=== PATIENT | female | born 1980 | race Caucasian/White ===

== ENCOUNTER 2019-12-13 08:02 | Emergency (ER) | payer SELFPAY ==
[2019-12-13 08:32] VITALS: BP 115/69; PULSE 62; RESP 20; TEMP 36.9; O2SAT 100
--- NOTE | 2019-12-13 08:49 | ED.GENADULT ---
HPI - General Adult General Chief complaint: Eye Problems Stated complaint: Left eye pain/watery Time Seen by Provider: 12/13/19 08:51 Source: patient and RN notes reviewed Mode of arrival: ambulatory Limitations: no limitations History of Present Illness HPI narrative: 39-year-old female presents with concern for left eye drainage, irritation. Reports that started 2 days ago and has been getting worse. She denies any injury, contact lens wearing, foreign body. Reports pain is a 2 out of 10 in the left eye. MD complaint: Eye pain Related Data Home Medications Medication Instructions Recorded Confirmed sertraline [Zoloft] 50 mg PO DAILY 12/13/19 12/13/19 Allergies Allergy/AdvReac Type Severity Reaction Status Date / Time metoclopramide Allergy Intermediate Seizure Verified 12/13/19 08:40 adhesive Allergy Unknown RASH Verified 12/13/19 08:40 aripiprazole Allergy Unknown Unknown Verified 12/13/19 08:40 codeine Allergy Unknown Unknown Verified 12/13/19 08:40 dicyclomine Allergy Unknown Unknown Verified 12/13/19 08:40 iodine Allergy Unknown Dyspnea / Verified 12/13/19 08:40 SOB meperidine Allergy Unknown Unknown Verified 12/13/19 08:40 Penicillins Allergy Unknown Swelling Verified 12/13/19 08:40 Review of Systems Review of Systems: Narrative: CONSTITUTIONAL: Denies malaise, chills, sweats, or fever. EYES: Denies visual changes, redness. Reports left eye cloudy copious discharge. ENT: Denies rhinorrhea, congestion, sinus pain, otalgia or sore throat. SKIN: Denies rash or itching. NEUROLOGIC: Denies headache. All systems reviewed & are unremarkable except as noted in HPI and below PMFSH Past Medical History Medical History (Updated 12/13/19 @ 08:59 by Luda Pain[employer] NP) Colon polyp Gastroparesis Nausea and vomiting in adult Family History Family History (Updated 05/02/19 @ 15:21 by DOCTOR UNKNOWN) Mother Family history of malignant neoplasm of kidney Father Patient's father is Sibling Family history of gynecological problem Grandparent Family history of chronic obstructive pulmonary disease Social History Social History Smoking status: Never smoker Second hand tobacco smoke exposure: No Alcohol intake: current Comments At time of signature, agree with nursing past medical, surgical, social and family history. There is no relevant family history pertinent to the presenting complaint Exam Narrative: Exam Narrative: GENERAL: Well-appearing, well-nourished, and in no acute distress. HEAD: Normocephalic, atraumatic. EYES: Right eye PERRLA, conjunctivae clear, and EOMI. No nystagmus. Left eye PERRLA, conjunctivae clear, and EOMI, sclerae injected, purulent drainage noted, mild upper lid superficial edema ENT: Nares clear, turbinates pink, no rhinorrhea or epistaxis. Mucous membranes moist. Oropharynx without erythema or lesions. NECK: Supple. No lymphadenopathy. CHEST: No respiratory distress. Speaks in full sentences. HEART: Regular rate and rhythm SKIN: Warm, dry, no rash. NEURO: Alert and oriented x3. PSYCH: Normal mood and affect Course Course Emergency Course: Patient is aware of diagnosis, understands and agrees to treatment plan. Anticipatory guidance given. Patient agrees to follow-up as directed and is aware of reasons to seek care at the emergency department. Portions of this record may have been created with voice recognition software Vital Signs Vital signs: Vital Signs Temperature 98.4 F 12/13/19 08:32 Pulse Rate 62 12/13/19 08:32 Respiratory Rate 20 12/13/19 08:32 Blood Pressure 115/69 12/13/19 08:32 Pulse Oximetry 100 12/13/19 08:32 Temperature 98.4 F 12/13/19 08:32 Pulse Rate 62 12/13/19 08:32 Respiratory Rate 20 12/13/19 08:32 Blood Pressure 115/69 12/13/19 08:32 Pulse Oximetry 100 12/13/19 08:32 Reviewed. Medical Decision Making MDM Narrative Medical decision making narrative: Consideration of
== END 2019-12-13 08:55 | disposition home or self-care (01) ==
PROVIDERS: Emergency Provider Nurse Practitioner; PCP Internal Medicine
DX: H10.32 Unspecified acute conjunctivitis, left eye (principal); K31.84 Gastroparesis
CPT/HCPCS: 99213; G0463

== ENCOUNTER 2021-06-11 14:53 | Emergency (ER) | payer OTHER, SELFPAY ==
--- NOTE | ~2021-06-11 | CT_ITS ---
EXAMINATION: CT brain wo con DATE: 06/11/2021 17:41 INDICATION: Dizziness TECHNIQUE: Computed tomography (CT) of the head was performed without intravenous contrast. The mA wa s adjusted according to patient size. Iterative reconstruction technique was employed. Exam dose: 52 9.67 mGy-cm total exam DLP. COMPARISON: None FINDINGS: No intracranial mass lesion or hemorrhage or cerebrovascular accident. Normal ventricular s ize. Normal payan-white matter differentiation. No midline shift or mass effect. No subdural or epidur al hematoma. No fracture or bone destruction of the cranial vault. Mastoid air cells and included paranasal sinuse s are normally developed and aerated. IMPRESSION: Normal examination Reviewed, dictated and finalized at [facility]. Reviewed, dictated and finalized at [facility]. IMPRESSION: Normal examination
--- NOTE | ~2021-06-11 | XR_ITS ---
XR chest 1V portable DATE: 06/11/2021 16:33 INDICATION: Shortness of breath. Covid-positive in January 2021 TECHNIQUE: Portable upright AP chest on 06/04/2021 at 1628 hours COMPARISON: 10/29/2018 PA and lateral chest FINDINGS: The normal heart size. No hilar or mediastinal enlargement. No pulmonary infiltrate or cons olidation, pleural effusion or pulmonary vascular congestion or pneumothorax. Included skeletal structures are unremarkable. Status post cholecystectomy. IMPRESSION: No active cardiopulmonary disease Reviewed, dictated and finalized at [facility].
[2021-06-11 14:55] VITALS: BP 127/82; PULSE 60; RESP 18; TEMP 36.6; O2SAT 100
[2021-06-11 15:07] VITALS: PULSE 57
--- NOTE | 2021-06-11 15:59 | ECG_ITS ---
Measurements Intervals Central Rate: 56 P: 71 WV: 151 QRS: 19 QRSD: 96 T: 38 QT: 448 QTc: 432 Interpretive Statements SINUS BRADYCARDIA DELAYED PRECORDIAL R/S TRANSITION BORDERLINE T WAVE ABNORMALITY- ANT/INF LEADS BASELINE ARTIFACT- I, II, III, AVR, AVL, AVF, V2-V6 BORDERLINE ECG Electronically Signed On 06-11-2021 17:44:03 CDT by Rafita Greer D.O.
[2021-06-11 16:26] LABS: Alveolar/Arterial O2 Gradient 16.3 mmHg; Base Excess ABG -4.2 mEq/l (+/-2.0); Device ROOM AIR; Fractional Inspired Oxygen 21 %; HCO3 ABG 18.2 mEq/l (22.0-26.0); Modified Allen's Test Pass; Oxygen Content ABG 19.7 %vol (16.0-22.0); Oxygen Saturation ABG 97.9 % (95.0-100.0); PCO2 ABG 27.1 mmHg (35.0-45.0); PO2 FiO2 Ratio Arterial Blood 4.81 %; Site Drawn RIGHT RADIAL; Total Hemoglobin 14.4 g/dL (12.0-18.0); pH ABG 7.446 (7.350-7.450)
[2021-06-11 17:18] LABS: Basophils Percent Auto 0.5 % (0.2-1.2); Eosinophils Absolute Auto 0.1 K/mm3 (0-0.3); Eosinophils Percent Auto 1.6 % (0-4.4); Hematocrit 42.4 % (37.0-47.0); Hemoglobin 14.3 g/dL (12.0-15.0); Immature Granulocyte Absolute 0.02 K/mm3 (0.00-0.031); Immature Granulocyte Percent A 0.3 % (0-0.5); Lymphocytes Absolute Auto 3.22 K/mm3 (0.9-3.2); Mean Corpuscular HGB Conc 33.7 g/dl (32-36); Mean Platelet Volume 10.5 fl (7.4-10.4); Monocytes Absolute Auto 0.5 K/mm3 (0.1-0.6); Neutrophils Absolute Auto 3.6 K/mm3 (1.3-6.7); Neutrophils Percent Auto 48.6 % (45.5-73.1); Platelet Count Result 279 k/mm3 (150-375); Red Blood Count 4.93 M/mm3 (4.2-5.4); Red Cell Distribution Width 12.8 % (11.5-14.5); White Blood Count 7.5 K/mm3 (4.5-10.0)
[2021-06-11] MEDS: ONDANSETRON INJ 4 MG/2 ML VIAL 8 MG IV PUSH (17:21)
--- NOTE | 2021-06-11 17:31 | ED.GENADULT ---
HPI - General Adult General Chief complaint: Shortness of Breath/Dyspnea Stated complaint: SOB Time Seen by Provider: 06/11/21 15:58 Source: patient and family Mode of arrival: ambulatory Limitations: no limitations History of Present Illness HPI narrative: Patient is 40 years old white female presented to the ED with intermittent shortness of breath since January 2021 after having Covid infection at that time. Later was diagnosed of pulmonary embolism and started on Xarelto. Patient been out of work since January, went back to work 10 days ago. Today patient felt dizzy with nausea. Patient denies worsening of the shortness of breath. Her shortness of breath is intermittent with exertion. History of COVID-19 infection January 28, 2021. Patient denies any fever, chills, vomiting, chest pain, headache, abdominal pain or back pain. Related Data Home Medications Medication Instructions Recorded Confirmed sertraline [Zoloft] 100 mg PO DAILY 12/13/19 12/13/19 rivaroxaban [Xarelto] mg 06/11/21 topiramate [Topamax] 100 mg PO BID 06/11/21 Allergies Allergy/AdvReac Type Severity Reaction Status Date / Time metoclopramide Allergy Intermediate Seizure Verified 06/11/21 14:58 adhesive Allergy Unknown RASH Verified 06/11/21 14:58 aripiprazole Allergy Unknown Unknown Verified 06/11/21 14:58 codeine Allergy Unknown Unknown Verified 06/11/21 14:58 dicyclomine Allergy Unknown Unknown Verified 06/11/21 14:58 iodine Allergy Unknown Dyspnea / Verified 06/11/21 14:58 SOB meperidine Allergy Unknown Unknown Verified 06/11/21 14:58 Penicillins Allergy Unknown Swelling Verified 06/11/21 14:58 Review of Systems Review of Systems: CONSTITUTIONAL: Denies fever, chills, or sweats. EYES: Denies visual changes, redness, or discharge. ENT: Denies rhinorrhea, congestion, sore throat, or otalgia. CARDIOVASCULAR: Denies chest pain, palpitations, or edema. RESPIRATORY: Denies cough or dyspnea. GASTROINTESTINAL: Denies abdominal pain, nausea, vomiting, or diarrhea. GENITOURINARY: Denies dysuria or hematuria. SKIN: Denies rash or itching. MUSCULOSKELETAL: Denies back pain, joint pain, or myalgia. NEUROLOGIC: Denies headache, numbness, or weakness. PSYCHIATRIC: Denies anxiety or depression. PMFSH Past Medical History Medical History Bloating Colon polyp Gastroparesis Irritable bowel syndrome with diarrhea Nausea and vomiting in adult Family History Family History Mother Family history of malignant neoplasm of kidney Father Patient's father is Sibling Family history of gynecological problem Grandparent Family history of chronic obstructive pulmonary disease Social History Social History Smoking status: Never smoker Second hand tobacco smoke exposure: No Alcohol intake: current Exam Narrative: General appearance: Well-developed, well-nourished Skin: Normal color Head: Normocephalic, nontraumatic Eyes: Clear conjunctiva ENT: Oropharynx normal, ears normal, nose normal Neck: Supple, nontender Chest and respiratory: Airway patent, no respiratory distress, no accessory muscle use Heart: Regular rate/rhythm Abdomen: Soft, nontender, no organomegaly, quiet bowel sounds Vascular: Normal peripheral pulses, normal capillary refill. Musculoskeletal: Normal range of motion, nontender back Neurologic: Alert and oriented ?3, W[employer]INEER is normal as tested, no gross motor deficit Course Course Emergency Course: Stable Vital Signs Vital signs: Vital Signs Temperature 36.6 C 06/11/21 14:55 P
[2021-06-11 17:32] LABS: Alanine Aminotransferase 34 U/L (4-35); Albumin Level 4.6 g/dL (3.5-5.1); Alkaline Phosphatase 97 U/L (38-126); Anion Gap 10 mmol/L (8-16); Aspartate Amino Transferase 29 U/L (14-36); Bilirubin,Total 0.5 mg/dL (0.2-1.3); Blood Urea Nitrogen 6 mg/dL (7-17); Calcium 9.5 mg/dL (8.4-10.2); Carbon Dioxide 23 mmol/L (22-30); Chloride 106 mmol/L (98-107); Estimated CRCL calculation 88 ml/min; Estimated Glomerular Filt Rate > 60; Glucose 105 mg/dL (65-110); Potassium 3.5 mmol/L (3.4-5.0); Sodium 139 mmol/L (137-145)
[2021-06-11 17:33] LABS: Magnesium 1.8 mg/dL (1.6-2.3)
[2021-06-11 17:41] LABS: INR 1.1; Prothrombin Time 13.6 Seconds (11.1-14.7)
[2021-06-11 17:42] LABS: Partial Thromboplastin Time 29.1 SECONDS (22.3-36.8)
[2021-06-11 17:47] LABS: NT Pro B Type Natriuretic Pept 21 pg/mL (5-100); Troponin I < 0.012 ng/mL (0.000-0.034)
[2021-06-11 18:15] VITALS: BP 126/90; PULSE 60; RESP 14; O2SAT 100
== END 2021-06-11 18:16 | disposition home or self-care (01) ==
PROVIDERS: Emergency Provider Emergency Medicine; PCP Internal Medicine
DX: F45.8 Other somatoform disorders (principal); R06.02 Shortness of breath; B94.8 Sequelae of other specified infectious and parasitic diseases; Z86.711 Personal history of pulmonary embolism; K31.84 Gastroparesis; K58.0 Irritable bowel syndrome with diarrhea; Z79.01 Long term (current) use of anticoagulants; Z86.010 Personal history of colon polyps; R00.1 Bradycardia, unspecified; R94.31 Abnormal electrocardiogram [ECG] [EKG]
CPT/HCPCS: 36415; 36600; 70450; 71045; 80053; 82805; 83735; 83880; 84484; 85025; 85610; 85730; 93005; 96374; 99284; J2405

== ENCOUNTER 2023-08-09 11:24 | Outpatient (CLI) | payer OTHER, SELFPAY ==
[2023-08-09 12:25] LABS: Alanine Aminotransferase 38 U/L (6-35); Albumin Level 4.7 g/dL (3.5-5.1); Alkaline Phosphatase 69 U/L (38-126); Anion Gap 10 mmol/L (8-16); Aspartate Amino Transferase 38 U/L (14-36); Bilirubin,Total 0.6 mg/dL (0.2-1.3); Blood Urea Nitrogen 11 mg/dL (7-17); Calcium 9.5 mg/dL (8.4-10.2); Carbon Dioxide 23 mmol/L (22-30); Chloride 102 mmol/L (98-107); Estimated Glomerular Filt Rate > 60; Glucose 146 mg/dL (65-110); Potassium 3.9 mmol/L (3.4-5.0); Sodium 135 mmol/L (137-145)
== END 2023-08-09 11:25 | disposition home or self-care (01) ==
LOC: ANHLAB 11:26
PROVIDERS: PCP Internal Medicine; Visit Provider Nurse Practitioner
DX: K31.84 Gastroparesis (principal); R11.2 Nausea with vomiting, unspecified
CPT/HCPCS: 36415; 80053

== ENCOUNTER 2023-08-22 17:37 | Outpatient (CLI) | payer OTHER, SELFPAY ==
--- NOTE | ~2023-08-22 | XR_ITS ---
Supine and upright views of the abdomen Clinical history: Early satiety Findings: Bowel gas pattern is nonspecific. No evidence for obstruction or free air. No abnormal mass lesion or calcification is seen. Cholecystectomy clips noted. Osseous structures are intact. Impression: No significant abnormality is seen. Reviewed, dictated and finalized at [facility]. [employer] Impression: No significant abnormality is seen.
== END 2023-08-22 17:38 | disposition home or self-care (01) ==
LOC: ANHIMG 17:39
PROVIDERS: PCP Internal Medicine; Visit Provider Nurse Practitioner
DX: R14.0 Abdominal distension (gaseous) (principal); R68.81 Early satiety
CPT/HCPCS: 74018

== ENCOUNTER 2023-10-10 01:07 | Day surgery (SDC) | payer OTHER, MEDICAID, SELFPAY ==
[2023-09-19 14:33] VITALS: BMI 28.6
--- NOTE | 2023-10-06 09:17 | SUR.PREOP ---
Patient called regarding upcoming procedure. Message left on pt's voicemail regarding appointment times.
[2023-10-10 09:05] VITALS: BP 116/74; PULSE 90; RESP 18; TEMP 36.1; O2SAT 98; BMI 31.8
[2023-10-10] MEDS: LACTATED RINGERS 1,000 ML 150 ML IV CONT (09:22)
--- NOTE | 2023-10-10 10:00 | WPDANESEPPF ---
Anes - Initial Pre Proc Eval Procedure: Operation Date: 10/10/23 10:30 Proposed Procedures p Colonoscopy - Bill Castano MD Date/Time: 10/10/23 10:00 Surgeon: Bill Castano MD Pre Op Diagnosis: hx colon polyps Patient Data Age: 43 Gender: F Height: 1.65 m Weight: 86.7 kg Last Vital Signs Temp 97 F L 10/10/23 09:05 Pulse 90 10/10/23 09:05 Resp 18 10/10/23 09:05 BP 116/74 10/10/23 09:05 Pulse Ox 98 10/10/23 09:05 O2 Del Method Room Air 10/10/23 09:05 Allergies Allergy/AdvReac Type Severity Reaction Status Date / Time metoclopramide Allergy Intermediate Seizure Verified 09/26/23 10:39 adhesive Allergy Unknown RASH Verified 09/26/23 10:39 aripiprazole Allergy Unknown Unknown Verified 09/26/23 10:39 codeine Allergy Unknown Unknown Verified 09/26/23 10:39 dicyclomine Allergy Unknown Unknown Verified 09/26/23 10:39 iodine Allergy Unknown Dyspnea / Verified 09/26/23 10:39 SOB meperidine Allergy Unknown Unknown Verified 09/26/23 10:39 Penicillins Allergy Unknown Swelling Verified 09/26/23 10:39 Home Medications Medication Instructions Recorded Confirmed Type sertraline 50 mg tablet (Zoloft) 100 mg PO DAILY 12/13/19 09/26/23 History cholestyramine (with sugar) 4 gram 4 g PO BID #60 ea 08/09/23 09/26/23 Rx powder for susp in a packet (Questran) magnesium hydroxide 400 mg/5 mL 5 ml PO DAILY PRN Constipation 08/09/23 09/26/23 History oral suspension (Dulcolax (magnesium hydroxide)) metoprolol succinate 25 mg 25 mg PO DAILY 08/09/23 09/26/23 History tablet,extended release 24 hr sacrosidase 8,500 unit/mL oral 2 ml PO 6XD #360 mL 09/18/23 09/26/23 Rx solution (Sucraid) Patient hx anesthesia problems: none Family hx anesthesia problems: none Results Review: All pre-operative results and documents have been reviewed as part of the pre-operative evaluation. [facility] Past Medical History Medical History Bloating BMI 32.0-32.9,adult Colon polyp Congenital sucrase-isomaltase deficiency Early satiety Gastroparesis Irritable bowel syndrome with diarrhea Nausea and vomiting in adult Personal history of colonic polyps Family History Family History Mother Family history of malignant neoplasm of kidney Lung cancer Diabetes mellitus Edema Father Patient's father is MVC Sibling Family history of gynecological problem Grandparent Family history of chronic obstructive pulmonary disease Social History Social History Smoking status: Never smoker Second hand tobacco smoke exposure: No Alcohol intake: current Substance use: never Substance use type: does not use Lack of Transportation: No Lack of Food: Never True Current Housing: I Have Housing Concerned About Future Housing: No Difficulty Paying Gas/Electric Bills: No Difficulty Paying for Meds: No Currently Unemployed: No Education: Associate Degree Difficulty w/ Childcare or Family Care: No Living arrangements: with family Occupation/Education: occupation Additional occupation/education comments: [employer] Gender identity (if verbalized by the patient): Female Spiritual care concerns: No Anes - Eval Final PreProcedure Day of Procedure 10/10/23 10:00 Patient weight: normal Heart: regular rate and rhythm Lungs: clear to auscultation Airway: Mallampati scale Neurological: alert and oriented Last oral intake: >/= 8 hours ASA classification: III Emergent: no Anesthetic plan: proceed Anesthesia type and monitoring: general GIVS and standard monitoring Results Review: All pre-operative results and documents have been reviewed as part of the pre-operative evaluation. Informed Consent: The patient's anesthetic plan and its attendant ri
--- NOTE | 2023-10-10 10:02 | WPDHPUPDATE1 ---
History and Physical Update Update Date/Time: 10/10/23 10:02 History and Physical has been reviewed, including an updated exam of the patient. There are NO changes in the patient's condition. Risks, benefits, and alternatives have been discussed and questions answered. Patient agrees to proceed with procedure.
[2023-10-10 10:36] VITALS: BP 103/69; PULSE 52; RESP 18; O2SAT 100
[2023-10-10 10:46] VITALS: BP 105/70; PULSE 51; RESP 20; O2SAT 100
== END 2023-10-10 11:10 | disposition home or self-care (01) ==
PROVIDERS: PCP Internal Medicine; Visit Provider Internal Medicine Gastroenterology
PROC: 0DJD8ZZ Inspection of Lower Intestinal Tract, Via Natural or Artificial Opening Endoscopic (ICD-10-PCS; CPT 45378; principal; 2023-10-10 10:30)
DX: Z12.11 Encounter for screening for malignant neoplasm of colon (principal); D12.0 Benign neoplasm of cecum; D12.2 Benign neoplasm of ascending colon; D12.3 Benign neoplasm of transverse colon; K63.5 Polyp of colon; E74.31 Sucrase-isomaltase deficiency; K58.0 Irritable bowel syndrome with diarrhea
CPT/HCPCS: 45380; 45385; 88305; J2001; J2704; J7120

== ENCOUNTER 2023-10-30 11:06 | Outpatient (CLI) | payer OTHER, MEDICAID, SELFPAY ==
[2023-10-30 19:18] LABS: Basophils Absolute Auto 0.1 K/mm3 (0.0-0.1); Basophils Percent Auto 0.7 % (0.2-1.2); Eosinophils Absolute Auto 0.1 K/mm3 (0-0.3); Eosinophils Percent Auto 1.7 % (0-4.4); Hematocrit 42.9 % (37.0-47.0); Hemoglobin 14.3 g/dL (12.0-15.0); Immature Granulocyte Absolute 0.01 K/mm3 (0.00-0.031); Immature Granulocyte Percent A 0.1 % (0-0.5); Lymphocytes Absolute Auto 2.92 K/mm3 (0.9-3.2); Mean Corpuscular HGB Conc 33.3 g/dl (32-36); Mean Corpuscular Hemoglobin 29.7 pg (26-34); Mean Platelet Volume 11.5 fl (7.4-10.4); Monocytes Absolute Auto 0.6 K/mm3 (0.1-0.6); Neutrophils Absolute Auto 3.8 K/mm3 (1.3-6.7); Neutrophils Percent Auto 50.5 % (45.5-73.1); Platelet Count Result 252 k/mm3 (150-375); Red Blood Count 4.82 M/mm3 (4.2-5.4); Red Cell Distribution Width 12.4 % (11.5-14.5); White Blood Count 7.5 K/mm3 (4.5-10.0)
[2023-10-30 19:27] LABS: Alanine Aminotransferase 42 U/L (6-35); Albumin Level 4.6 g/dL (3.5-5.1); Alkaline Phosphatase 83 U/L (38-126); Anion Gap 10 mmol/L (8-16); Aspartate Amino Transferase 32 U/L (14-36); Bilirubin,Total 0.5 mg/dL (0.2-1.3); Blood Urea Nitrogen 11 mg/dL (7-17); Calcium 9.3 mg/dL (8.4-10.2); Carbon Dioxide 26 mmol/L (22-30); Chloride 101 mmol/L (98-107); Cholesterol 280 mg/dL (0-200); Estimated Glomerular Filt Rate > 60; Glucose 137 mg/dL (65-110); HDL Direct 63 mg/dL; Potassium 4.2 mmol/L (3.4-5.0); Sodium 137 mmol/L (137-145); Triglycerides 154 mg/dL (<150)
[2023-10-30 19:37] LABS: LDL Cholesterol Direct 182 mg/dL
== END 2023-10-30 11:07 | disposition home or self-care (01) ==
LOC: ANHGOSHLAB 11:08
PROVIDERS: PCP Internal Medicine; Visit Provider Nurse Practitioner Family
DX: K31.84 Gastroparesis (principal); Z68.32 Body mass index [BMI] 32.0-32.9, adult; K58.0 Irritable bowel syndrome with diarrhea; E55.9 Vitamin D deficiency, unspecified
CPT/HCPCS: 36415; 80053; 80061; 82306; 84443; 85025

== ENCOUNTER 2024-02-02 11:17 | Outpatient (CLI) | payer OTHER, MEDICAID, SELFPAY ==
--- NOTE | ~2024-02-02 | XR_ITS ---
Left ankle Technique: AP, oblique, and lateral views were obtained. Clinical History: Sprain Findings: No acute fracture or dislocation is seen. Osseous alignment is anatomic. Ankle mortise and other visualized joint spaces are preserved. Soft tissues are otherwise unremarkable. Impression: Unremarkable left ankle. Reviewed, dictated and finalized at location . Impression: Unremarkable left ankle.
== END 2024-02-02 11:18 ==
LOC: MICIMG 11:19
PROVIDERS: PCP Emergency Medicine; Visit Provider Emergency Medicine
DX: S93.402A Sprain of unspecified ligament of left ankle, initial encounter (principal); X58.XXXA Exposure to other specified factors, initial encounter
CPT/HCPCS: 73610

== ENCOUNTER 2024-04-01 15:20 | Outpatient (CLI) | payer OTHER, SELFPAY ==
--- NOTE | ~2024-04-01 | XR_ITS ---
XR ankle LT min 3V Ordering provider: Whit Anderson History: . lateral left ankle pain after twisting injury 3 days ago . Comparison: February 02, 2024 FINDINGS: BONES: No acute fracture or dislocation. Well corticated small bone chip is seen in the area of the m edial malleolus which may indicate old fracture or nonunited apophysis. Unchanged from previous exami nation. JOINT SPACES: The ankle mortise is normal. SOFT TISSUES: Normal. Calcaneal spur. IMPRESSION: No definite acute osseous abnormality left ankle. Well corticated small bone chip is seen in the area of the medial malleolus which may indicate old fr acture or nonunited apophysis. Unchanged from previous examination. Reviewed, dictated and finalized at location [facility]. IMPRESSION: No definite acute osseous abnormality left ankle. Well corticated small bone chip is seen in the area of the medial malleolus whi ch may indicate old fracture or nonunited apophysis. Unchanged from previous ex amination.
== END 2024-04-01 15:21 ==
PROVIDERS: PCP Emergency Medicine; Visit Provider Nurse Practitioner Family
DX: M25.572 Pain in left ankle and joints of left foot (principal); X50.0XXA Overexertion from strenuous movement or load, initial encounter
CPT/HCPCS: 73610

== ENCOUNTER 2024-04-10 09:10 | Outpatient (CLI) | payer OTHER, MEDICAID, SELFPAY ==
[2024-04-10 10:19] LABS: Basophils Percent Auto 0.5 % (0.2-1.2); Eosinophils Absolute Auto 0.1 K/mm3 (0-0.3); Eosinophils Percent Auto 1.5 % (0-4.4); Hematocrit 41.3 % (37.0-47.0); Hemoglobin 14.1 g/dL (12.0-15.0); Immature Granulocyte Absolute 0.02 K/mm3 (0.00-0.031); Immature Granulocyte Percent A 0.3 % (0-0.5); Lymphocytes Absolute Auto 2.87 K/mm3 (0.9-3.2); Lymphocytes Percent Auto 44.2 % (18.3-44.2); Mean Corpuscular HGB Conc 34.1 g/dl (32-36); Mean Corpuscular Hemoglobin 29.7 pg (26-34); Mean Corpuscular Volume 86.9 fl (80-100); Monocytes Absolute Auto 0.5 K/mm3 (0.1-0.6); Monocytes Percent Auto 7.1 % (2.6-8.5); Neutrophils Percent Auto 46.4 % (45.5-73.1); Platelet Count Result 274 k/mm3 (150-375); Red Blood Count 4.75 M/mm3 (4.2-5.4); Red Cell Distribution Width 12.4 % (11.5-14.5); White Blood Count 6.5 K/mm3 (4.5-10.0)
[2024-04-10 10:44] LABS: LDL Cholesterol Direct 161 mg/dL
[2024-04-10 10:48] LABS: Alanine Aminotransferase 29 U/L (6-35); Albumin Level 4.6 g/dL (3.5-5.1); Alkaline Phosphatase 69 U/L (38-126); Anion Gap 7 mmol/L (4-12); Aspartate Amino Transferase 25 U/L (14-36); Bilirubin,Total 0.6 mg/dL (0.2-1.3); Blood Urea Nitrogen 9 mg/dL (7-17); Calcium 9.5 mg/dL (8.4-10.2); Carbon Dioxide 27 mmol/L (22-30); Chloride 102 mmol/L (98-107); Cholesterol 244 mg/dL (0-200); Estimated Glomerular Filt Rate > 60; Glucose 133 mg/dL (65-110); HDL Direct 58 mg/dL; Potassium 3.9 mmol/L (3.4-5.0); Sodium 136 mmol/L (137-145); Triglycerides 190 mg/dL (<150)
--- NOTE | 2024-04-10 11:00 | NEURO_ITS ---
Impression: # Complains of hand pain. Not diabetic. # Normal Nerve Conduction Study with no evidence of Carpal Tunnel Syndrome or ulnar neuropathy. # Normal needle/EMG exam. Nerve Conduction Studies Anti Sensory Summary Table Stim Site NR Peak (ms) P-T Amp (?V) Site1 Site2 Delta-P (ms) Dist (cm) Percy (m/s) Left Median Anti Sensory (2-3nd Digit) Wrist 2.6 63.0 Wrist 2-3nd Digit 2.6 14.0 54 Wrist 2.6 84.9 Wrist 2-3nd Digit 2.6 14.0 54 Right Median Anti Sensory (2-3nd Digit) Wrist 2.7 78.4 Wrist 2-3nd Digit 2.7 14.0 52 Wrist 2.5 87.3 Wrist 2-3nd Digit 2.7 14.0 52 Left Radial Anti Sensory (Base 1st Digit) Wrist 1.6 24.4 Wrist Base 1st Digit 1.6 0.0 Right Radial Anti Sensory (Base 1st Digit) Wrist 2.1 34.3 Wrist Base 1st Digit 2.1 0.0 Left Ulnar Anti Sensory (5th Digit) Wrist 2.4 43.5 Wrist 5th Digit 2.4 14.0 58 Right Ulnar Anti Sensory (5th Digit) Wrist 2.2 86.3 Wrist 5th Digit 2.2 14.0 64 Motor Summary Table Stim Site NR Onset (ms) O-P Amp (mV) Site1 Site2 Delta-0 (ms) Dist (cm) Percy (m/s) Left Median Motor (Abd Poll Brev) Wrist 3.0 3.6 Elbow Wrist 4.9 28.0 57 Elbow 7.9 2.8 Right Median Motor (Abd Poll Brev) Wrist 2.5 8.6 Elbow Wrist 4.6 27.0 59 Elbow 7.1 6.8 Left Ulnar Motor (Abd Dig Minimi) Wrist 2.2 6.7 A Elbow Wrist 4.9 29.0 59 A Elbow 7.1 5.7 Right Ulnar Motor (Abd Dig Minimi) Wrist 2.0 6.8 A Elbow Wrist 5.0 29.0 58 A Elbow 7.0 6.4 F Wave Studies NR F-Lat (ms) L-R F-Lat (ms) Left Median (Mrkrs) (Abd Poll Brev) 25.08 0.97 Right Median (Mrkrs) (Abd Poll Brev) 26.05 0.97 Left Ulnar (Mrkrs) (Abd Dig Min) 25.22 1.03 Right Ulnar (Mrkrs) (Abd Dig Min) 26.25 1.03 EMG Side Muscle Nerve Root Ins Act Fibs Amp Dur Recrt Comment Right 1stDorInt Ulnar C8-T1 Nml Nml Nml Nml Nml Right Ext Indicis Radial (Post Int) C7-8 Nml Nml Nml Nml Nml Right Ext Digitorum Radial (Post Int) C7-8 Nml Nml Nml Nml Nml Right BrachioRad Radial C5-6 Nml Nml Nml Nml Nml Right PronatorTeres Median C6-7 Nml Nml Nml Nml Nml Right Abd Poll Brev Median C8-T1 Nml Nml Nml Nml Nml Right ABD Dig Min Ulnar C8-T1 Nml Nml Nml Nml Nml Left 1stDorInt Ulnar C8-T1 Nml Nml Nml Nml Nml Left Ext Indicis Radial (Post Int) C7-8 Nml Nml Nml Nml Nml Left Ext Digitorum Radial (Post Int) C7-8 Nml Nml Nml Nml Nml Left BrachioRad Radial C5-6 Nml Nml Nml Nml Nml Left PronatorTeres Median C6-7 Nml Nml Nml Nml Nml Left Abd Poll Brev Median C8-T1 Nml Nml Nml Nml Nml Left ABD Dig Min Ulnar C8-T1 Nml Nml Nml Nml Nml MTDD
[2024-04-10 11:09] LABS: Vitamin D 25 Hydroxy 28.9 ng/mL
[2024-04-10 14:10] LABS: Hemoglobin A1C 6.7 % (<5.7)
== END 2024-04-10 09:11 | disposition home or self-care (01) ==
PROVIDERS: PCP Emergency Medicine; Referring Provider Nurse Practitioner Family; Visit Provider Emergency Medicine
DX: K31.84 Gastroparesis (principal); Z68.32 Body mass index [BMI] 32.0-32.9, adult; K58.0 Irritable bowel syndrome with diarrhea; E55.9 Vitamin D deficiency, unspecified; R73.01 Impaired fasting glucose; M79.641 Pain in right hand; M79.642 Pain in left hand
CPT/HCPCS: 36415; 80053; 80061; 82306; 83036; 84443; 85025; 95886; 95911

== ENCOUNTER 2024-04-19 07:52 | Outpatient (CLI) | payer OTHER, MEDICAID, SELFPAY ==
--- NOTE | ~2024-04-19 | US_ITS ---
Right axillary ultrasound Clinical history: Palpable lump TECHNIQUE: Targeted sonographic imaging of the right axilla was performed at the area of clinical con cern. FINDINGS: No solid or cystic lesion identified at the region scanned. No sonographic abnormality seen . IMPRESSION: No sonographic correlate seen for the area of palpable concern in the right axilla. Reviewed, dictated and finalized at location . IMPRESSION: No sonographic correlate seen for the area of palpable concern in the right axi lla.
== END 2024-04-19 07:53 | disposition home or self-care (01) ==
LOC: ANHIMG 07:53
PROVIDERS: PCP Emergency Medicine; Visit Provider Emergency Medicine
DX: R59.0 Localized enlarged lymph nodes (principal)
CPT/HCPCS: 76882

== ENCOUNTER 2024-04-26 15:11 | Outpatient (CLI) | payer OTHER, MEDICAID, SELFPAY ==
--- NOTE | ~2024-04-26 | MM_ITS ---
EXAMINATION: MM screening gary BI w natalya HISTORY: Screening TECHNIQUE: Craniocaudal and mediolateral oblique 3-D tomosynthesis images were obtained and synthetic 2-D images were generated. CAD analysis was submitted and interpreted. COMPARISON: 03/25/2019 BREAST PARENCHYMAL COMPOSITION: Dense: The breasts are heterogeneously dense, which may obscure small masses FINDINGS: There is no evidence of suspicious mass, calcification, or architectural distortion to sugg est malignancy in either breast. There has been no suspicious interval change. IMPRESSION: 1. No mammographic evidence of malignancy. 2. Recommend routine screening mammography in one year. BI-RADS Category 1: Negative Reviewed, dictated and finalized at [facility].
== END 2024-04-26 15:12 | disposition home or self-care (01) ==
PROVIDERS: PCP Emergency Medicine; Visit Provider Nurse Practitioner Family
DX: Z12.31 Encounter for screening mammogram for malignant neoplasm of breast (principal)
CPT/HCPCS: 77063; 77067

== ENCOUNTER 2024-05-21 15:36 | Outpatient (CLI) | payer OTHER, MEDICAID, SELFPAY ==
[2024-05-23 08:09] LABS: FSH 8.4 mIU/mL
[2024-06-01 22:13] LABS: Estradiol, Ultrasensitive 20 pg/mL
== END 2024-05-21 15:37 | disposition home or self-care (01) ==
LOC: ANHLAB 15:38
PROVIDERS: PCP Emergency Medicine; Visit Provider Obstetrics & Gynecology
DX: N95.1 Menopausal and female climacteric states (principal)
CPT/HCPCS: 36415; 82670; 83001

== ENCOUNTER 2024-06-19 12:24 | Outpatient (CLI) | payer OTHER, MEDICAID, SELFPAY ==
--- NOTE | ~2024-06-19 | CT_ITS ---
Non-contrast CT scan of the Abdomen and Pelvis Clinical indication: Abdominal pain Technique: 2.5 mm axial scans were obtained through the abdomen and pelvis without intravenous or or al contrast. Dose reduction technique was used on this scan by utilizing automated exposure control a nd iterative reconstruction technique. The dose-length product (DLP) was 628.67 mGy-cm. Findings: Images through the lung bases reveal no abnormalities. There is no evidence of renal or ureteral calculi. The kidneys and the ureters are nondilated. The liver, spleen, pancreas, and adrenals appear normal. Cholecystectomy clips are present. There is no aortic aneurysm. There is no evidence of bowel obstruction. Images through the pelvis were performed. There is no evidence of ascites or lymphadenopathy. Urinary bladder unremarkable. No pelvic mass seen. Impression: No significant abnormality seen. Reviewed, dictated and finalized at [facility]. Impression: No significant abnormality seen.
== END 2024-06-19 12:25 | disposition home or self-care (01) ==
LOC: ANHIMG 12:26
PROVIDERS: PCP Emergency Medicine; Visit Provider Surgery
DX: R10.31 Right lower quadrant pain (principal); R10.32 Left lower quadrant pain
CPT/HCPCS: 74176